=== PATIENT | male | born 1985 | race African-American/Black ===

== ENCOUNTER 2019-01-31 15:49 | Emergency (ER) | payer OTHER ==
[~2019-01-31] VITALS: Ht 182.9 cm; Wt 81.6 kg
[2019-01-31 16:00] VITALS: BP 118/80
[2019-01-31] MEDS ORDERED: IBUPROFEN 600 MG TABLET PO ONE ×2 (17:36→18:00)
--- NOTE | 2019-01-31 17:59 | NUR ---
Patient discharged to home in stable condition. Written and verbal after care instructions given. Patient verbalizes understanding of instruction.
== END 2019-01-31 18:01 | disposition home or self-care (01) ==
LOC: ER 15:53
DX: S29.012A Strain of muscle and tendon of back wall of thorax, initial encounter (principal); S00.31XA Abrasion of nose, initial encounter; V43.52XA Car driver injured in collision with other type car in traffic accident, initial encounter; Y93.89 Activity, other specified; Y92.413 State road as the place of occurrence of the external cause; Y99.8 Other external cause status